=== PATIENT | male | born 1945 | race Caucasian/White ===

== ENCOUNTER 2021-04-07 14:59 | Emergency (ER) | payer MEDICARE, BC, SELFPAY ==
[2021-04-07 15:00] VITALS: BP 183/81; PULSE 62; RESP 16; TEMP 36.8; O2SAT 100; BMI 22.8
--- NOTE | 2021-04-07 15:02 | RAD_ITS ---
STUDY: X-RAY - LEFT SHOULDER REASON FOR EXAM: Male, 76 years old. Trauma TECHNIQUE: 5 view(s) of the shoulder. COMPARISON: None. FINDINGS: Normal glenohumeral articulation. Normal acromioclavicular joint. Normal acromion. Left clavicular comminuted fracture. Comminuted fracture of the left scapula along the inferior edge. Normal humeral head and visualized proximal humerus. The soft tissue structures are unremarkable. Multiple fractures from the first through seventh ribs. Pneumothorax at the left pulmonary apex. RAD/Shoulder min 2 Views IMPRESSION: Left clavicular and scapular fractures. Multiple left rib fractures. Left apical pneumothorax. Electronically Signed: Garcia Minaya DO at 17:13 EDT Tel [phone], Service support ,
--- NOTE | 2021-04-07 15:02 | RAD_ITS ---
STUDY: X-RAY - PELVIS AND LEFT HIP REASON FOR EXAM: Male, 76 years old. Trauma TECHNIQUE: 3 views of the pelvis and hip. COMPARISON: None. FINDINGS: There is a non-specific bowel gas pattern. Normal visualized soft tissue structures. Normal bilateral iliac wings, sacroiliac joints and visualized sacrum. Fractures are noted of the left superior and inferior pubic rami. Normal pubic symphysis. Normal bilateral ischial tuberosities. Previous ORIF of the left femur. Normal acetabulum. Normal hip joint. RAD/HIP, UNI W/ Pelvis 2-3 Views IMPRESSION: Left pubic rami fractures are suspected. Electronically Signed: Garcia Minaya DO at 17:11 EDT Tel [phone], Service support ,
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
[2021-04-07 15:06] VITALS: O2SAT 100
[2021-04-07] MEDS: Diphth,Pertuss(Acell),Tet Vac 0.5 ML Vial IM (15:17)
[2021-04-07] MEDS: Ondansetron 4 MG/2 ML Vial IV (15:17)
[2021-04-07] MEDS: Morphine 4 MG/ML Syringe IV ×2 (15:17→16:05)
--- NOTE | 2021-04-07 15:35 | CT_ITS ---
STUDY: CT BRAIN WITHOUT CONTRAST REASON FOR EXAM: Male, 76 years old. Trauma RADIATION DOSAGE (If Supplied By Facility): CTDIvol = ( 38.43 ) mGy, DLP = ( 784.74 ) mGycm TECHNIQUE: Transaxial CT imaging of the brain was performed without administration of intravenous contrast material. Individualized dose optimization techniques were used for this CT. COMPARISON: No relevant priors. FINDINGS: Normal soft tissue structures. Normal calvarium. There is mild cerebral atrophy with widening of the extra-axial spaces and ventricular dilatation. There are areas of decreased attenuation within the white matter tracts of the supratentorial brain, consistent with microvascular disease changes. Normal basal ganglia and thalami. Normal brainstem. Normal cerebellum. There is no intracranial hemorrhage. There are no findings of an acute ischemic infarction. Nasal septal deviation towards the left side of the midline. Mild degree of mucosal thickening of the ethmoid sinus. CT/Brain/Head without Contrast IMPRESSION: Chronic involutional changes of the brain. Electronically Signed: Franky Samayoa MD at 15:45 EDT , Service support ,
[2021-04-07 15:37] LABS: Absolute Lymphocyte Count 0.77 X10^3/uL (0.83-4.51); Absolute Neutrophil Count 22.5 X10^3/uL (2.0-7.7); Basophil# 0.04 X10^3/uL; Basophil% 0.2 % (0-1); Eosinophil# 0.02 X10^3/uL; Eosinophils% 0.1 % (0-5); Hematocrit 38.7 % (40-54); Hemoglobin 12.7 g/dL (13.0-16.5); Lymphocyte # 0.77 X10^3/ul (0.83-4.51); Lymphocyte % 3.1 % (19-41); Mean Corp Hgb Conc 32.8 g/dL (32-36); Mean Corpuscular Hgb 28.9 pg (27.0-32.0); Mean Corpuscular Volume 88.2 fL (80-94); Mean Platelet Vol. 9.6 fl (6.2-12.0); Monocyte# 1.46 X10^3/uL; Monocyte% 5.8 % (0-10); NRBC Flagged by Analyzer 0 % (0-5); Neutrophil # 22.53 X10^3/uL (2.7-7.7); Neutrophil % 89.4 % (47-70); POSITIVE DIFFERENTIAL YES; Platelet Count 228 K/mm3 (150-450); RBC Distribution Width CV 13.1 % (11.6-14.6); RBC Distribution Width SD 42.9 fl (35.1-43.9); Red Blood Count 4.39 M/mm3 (4.6-6.2); White Blood Count 25.2 K/mm3 (4.4-11.0)
[2021-04-07 15:39] LABS: Differential Indicated SCAN CRITERIA MET
--- NOTE | 2021-04-07 15:45 | RAD_ITS ---
STUDY: X-RAY CHEST REASON FOR EXAM: Male, 76 years old. Trauma TECHNIQUE: Frontal view COMPARISON: None. FINDINGS: The lungs are hyperaerated with patchy left pulmonary opacities. Left apical pneumothorax. Normal size heart. Normal mediastinum and georgina. Normal visualized pulmonary arteries. Calcified aortic arch and descending thoracic aorta. Normal visualized thoracic spine. Multiple left rib fractures. Left clavicular fracture. There is no demonstrated abnormality of the visualized soft tissue structures of the upper abdomen. RAD/Chest 1 View (Portable) IMPRESSION: The lungs are hyperaerated with patchy left pulmonary opacities. Left apical pneumothorax. Left rib fractures. Fractures of the left clavicle and scapula. Electronically Signed: Garcia Minaya DO at 17:09 EDT Tel [phone], Service support ,
[2021-04-07 15:56] LABS: Anion Gap 6 (5-15); BUN 20 mg/dL (7-18); BUN/Creat Ratio 22.7 RATIO (10-20); Chloride 103 mmol/L (98-107); Creatinine, Serum 0.88 mg/dL (0.70-1.30); EST Glomerular Filtration Rate 89 mL/min (>60); Est Glom Filt Rate - Afr Amer 107 mL/min (>60); Estimated Creatinine Clearance 68.89 ml/min; Glucose 187 mg/dL (74-106); Sodium Level 137 mmol/L (136-145)
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
[2021-04-07 16:01] LABS: Differential Comment SCANNED
--- NOTE | 2021-04-07 16:07 | CT_ITS ---
We are attempting to reach an attending provider to discuss findings. An addendum with communication details will be sent when the communication is complete. STUDY: CT CHEST, ABDOMEN T PELVIS WITH CONTRAST REASON FOR EXAM: Male, 76 years old. Trauma RADIATION DOSAGE (If Supplied By Facility): CTDIvol = ( 14.19 ) mGy, DLP = ( 1161.87 ) mGycm TECHNIQUE: Transaxial imaging was performed following intravenous administration of IV 100mL [id number]-300. Individualized dose optimization techniques were used for this CT. COMPARISON: No relevant priors. FINDINGS: CHEST There is a mild left hemopneumothorax, approximately 10-15%. Patchy left pulmonary parenchymal densities possibly related to contusions. Normal heart and pericardium. Possible proximal segmental narrowing of the left subclavian vein. Normal mediastinum. Normal hilar regions. Normal unenhanced pulmonary arteries. Normal aorta arch and descending thoracic aorta. Fractures are noted of the left clavicle and scapula. Fracture of the left transverse process of C7. Left first through seventh rib fractures. Degenerative vertebral changes. ABDOMEN Normal liver. Normal gallbladder and extrahepatic biliary system. Normal spleen. Normal pancreas. Normal bilateral adrenal glands. Up to 4 mm stones in the right kidney. 5 mm stone in the left kidney. Normal visualized stomach. Normal small intestine. Fecal retention in the colon. The appendix is visualized and appears normal. Calcified abdominal aorta. Normal inferior vena cava. Normal retroperitoneum. Normal abdominal wall. Previous ORIF of the left femur. Fracture of the left transverse process of L5. PELVIS Normal urinary bladder. There is no pelvic fluid. There is no pelvic lymphadenopathy or mass lesion. Normal visualized pelvic arteries. Left pubic rami fractures. Subcutaneous contusion lateral to the left hip. CT/CT Chest, Abd, Pel w/Contrast IMPRESSION: Small left hemopneumothorax. Probable left pulmonary contusions. Multiple left rib fractures. Fracture of the left scapula and clavicle. Fractures of the left transverse process of L5 and C7. Left pubic rami fractures. Bilateral nonobstructive renal calculi. Electronically Signed: Garcia Minaya DO at 17:07 EDT Tel [phone], Service support ,
[2021-04-07 17:00] VITALS: BP 181/74; PULSE 79; RESP 16; O2SAT 100
[2021-04-07 17:43] VITALS: BP 179/74; PULSE 81; RESP 19; O2SAT 100
== END 2021-04-07 17:45 | disposition short-term general hospital (02) ==
LOC: ED 15:25
PROVIDERS: Emergency Provider Emergency Medicine; PCP Family Medicine
DX: S12.690A Other displaced fracture of seventh cervical vertebra, initial encounter for closed fracture (principal); S42.002A Fracture of unspecified part of left clavicle, initial encounter for closed fracture; S42.192A Fracture of other part of scapula, left shoulder, initial encounter for closed fracture; S22.42XA Multiple fractures of ribs, left side, initial encounter for closed fracture; S32.592A Other specified fracture of left pubis, initial encounter for closed fracture; S27.0XXA Traumatic pneumothorax, initial encounter; V19.88XA Pedal cyclist (driver) (passenger) injured in other specified transport accidents, initial encounter; Y93.55 Activity, bike riding; Y92.9 Unspecified place or not applicable; Y99.8 Other external cause status; M81.0 Age-related osteoporosis without current pathological fracture; N20.0 Calculus of kidney; Z79.82 Long term (current) use of aspirin; Z96.642 Presence of left artificial hip joint
CPT/HCPCS: 70450; 71045; 71260; 72125; 73030; 73502; 74177; 80048; 85025; 90715; 96361; 96374; 96375; 96376; 99285; J7040; Q9967; A4216; J2405

== ENCOUNTER 2024-08-12 08:51 | Emergency (ER) | payer MEDICARE, BC, SELFPAY ==
[2024-08-12 08:53] VITALS: BP 185/73; PULSE 71; RESP 18; TEMP 37.1; O2SAT 100; BMI 23.3
--- NOTE | 2024-08-12 09:07 | CT_ITS ---
STUDY: CT FACIAL BONES WITHOUT CONTRAST REASON FOR EXAM: Male, 79 years old. RT EYE SWELLING RADIATION DOSAGE (If Supplied By Facility): CTDIvol = ( 29.38 ) mGy, DLP = ( 547.46 ) mGycm TECHNIQUE: The patient was scanned in a multi detector CT scanner. Sagittal and coronal images were reconstructed. Individualized dose optimization techniques were used for this CT. COMPARISON: None. FINDINGS: There is extensive soft tissue swelling anterior to the right globe without evidence of involvement of the globe. There is no evidence of associated fracture. Findings likely inflammatory or post traumatic. There is no evidence of induration of the retrobulbar fat or involvement of the extraocular muscles. There is evidence of previous cataract surgery. Normal nasal bones and anterior nasal spine. Normal facial bones. There is no demonstrated fracture. Normal visualized paranasal sinuses. CT/Sinus/Facial Bone IMPRESSION: Diffuse soft tissue swelling anterior and lateral to the right orbit likely posttraumatic or inflammatory without involvement of the right globe or retrobulbar contents. No demonstrated fracture Paranasal sinuses are unremarkable Electronically Signed: Alverto Weinstein MD at 9:31 EDT ,
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
[2024-08-12 10:39] VITALS: BP 178/89; PULSE 78; RESP 19; TEMP 36.6; O2SAT 98
== END 2024-08-12 10:46 | disposition home or self-care (01) ==
PROVIDERS: Emergency Provider Emergency Medicine; PCP Family Medicine; Visit Provider Emergency Medicine
DX: S00.11XA Contusion of right eyelid and periocular area, initial encounter (principal); W22.09XA Striking against other stationary object, initial encounter; Y93.01 Activity, walking, marching and hiking; B35.4 Tinea corporis
CPT/HCPCS: 70486; 99283

== ENCOUNTER 2025-05-11 07:00 | Outpatient (RCR) | payer MEDICARE, BC, SELFPAY ==
--- NOTE | 2025-03-23 10:21 | HP.PTEVAL_ITS ---
Patient's Visit Information Visit Information Visit Information: JM ETIENNE is a 80 year old M referred to Physical Therapy by Dr. Jasper Rojas MD with a diagnosis of degenerative lumbar spinal stenosis. Date of Evaluation: 03/23/25 Physical Therapist: Wei Keen, DPT, OCS, CSCS Visit Plan Frequency: 2x /Week Duration: 4-6 Weeks Plan: 2x/week for 3-6 weeks IE HEP: trunk rotation, PPT, SKC, cat camel 20x 2x/day, pointer dogs 30 2x/day, postureal review and slouch overcorrect if sitting long time. Treat with1. rollout and stretch to B quads and psoas to help upright posture. 2. pelvic ROM, mobs and lumbar ROM encouraging progressive extension and HEP 3. core and hip stabs and strength to HEP. Emphasize NS which is hard for patient to get to. Subjective Subjective: Back pain and quad pain with walking. Feels like walking in sand. [place] that way for 6+ months. Back pain is more in buttocks. happns with being on feet especially first arising and first few steps. Legs feeling in quads kicks in immediately. Always active for 30+ yrs running many marathons. 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 Still bikes and is not a problem. Getting off for first few steps can be painful problem. Basic ADLS all I. Sleep is OK. Stiff upon waking. used to walk alot but has avoided due to this. No other regualr exercises but some core planks, pointer dogs sometimes, crunches. Pain LBP: Pain Intensity (Out of 10): 0 Pain Intensity Range: 0 and 2 Comment: comfy in sitting Objective Objective: Tightness in gait avoiding hip extension and pelvic anterior rotation, short steps but I and smooths out after first couplke steps. Good balance. Transfers are I in chair and bed. Sitting posture is sacral and flexed lumbar and thoracic spine with FW head, can correct but lab ored. Max tightness in quads and psoas B, HS at -35 90/90 test. Lumbar AROM ext max limited especially in pelvic rotation, flexion is min limited, SB min limited. reflexes 2/3 patella adn achilles Sensation LE WNl B to gross light touch. strength knees and ankles 5/5, hip abd and ext 3/5, rotation 3/5, core 3+ /5 abs and ext. Hard for patient to lie flat due to back tightness in supine unless knees are bent - slump, - SLR B. Balance/Special Test Scores Oswestry Low Back Score: 11 Goals Goal 1:: Lumbar ROM ext mod llimtied and fair pelvic motion to improve back pain Goal Time Frame: 4-6 Weeks Goal 2:: I appropriate HEP to limit future problems and maximize walking. Goal Time Frame: 4-6 Weeks Goal 3:: Pain in LB and weirdness in legs 75% better and 1/10 at worst Goal Time Frame: 4-6 Weeks Goal 4:: Find upright sitting and standing posture without cueing. Goal Time Frame: 4-6 Weeks Goal 5:: walk for fitness without increasing pain Goal Time Frame: 4-6 Weeks Goal 6:: oswestry score 50 Goal Time Frame: 4-6 Weeks Rehabilitation Potential Physical Therapy Diagnosis: Limited rom pelvis and lumb ar and tightness and weakness effecting comfort and funciton. Rehabilitation Potential: Fair Anticipated Interventions Patient/Client Instruction: Educate patient on: Condition and Plan of Care For the Purpose of:: To decrease pain, To increase ROM, To improve nutrient delivery to tissue, To increase tolerance to activity/condition/position, To improve ability of physical actions for home/community/work/leisure and To improve gait and locomotor functions Therapeutic Exercise to Include: Strength training, Postural training, Flexibilty training, Passive ROM and Active ROM For the Purpose of:: To decrease pain, To increase ROM, To improve nutrient delivery to tissue, To increase tolerance to activity/condition/position, To improve ability of physical actions for home/community/work/leisure, To improve gait and locomotor functions and To increase flexibility/ROM Manual Therapy Techniques to Include: Mobilization, Passive ROM and Soft tissue mobilization For the Purpose of:: To decrease pain, To increase ROM, To improve nutrient delivery to tissue, To increase tolerance to activity/condition/position and To increase flexibility/ROM Thermo therapy (hot pack): Yes For the Purpose of:: To decrease pain, To increase ROM and To improve muscle performance and motor function Text: Thank you for the opportunity to evaluate your patient. For Medicare and Medicare HMO plans, please review the plan of care and approve it. It will need to be FAXED BACK to us at [phone] for Medicare purposes. For Medicare only, by signing this I certify the plan of care. Please let me know if there are questions or concerns regarding this plan of care. Physician Signature: Date:
--- NOTE | 2025-05-11 07:49 | HP.PTDCSUM_ITS ---
Discharge Summary D/C summary: It has been my pleasure to treat JM ETIENNE referred by Dr. Jasper Rojas MD, with the diagnosis of degenerative lumbar spinal stenosis for a total of 13 visit(s). Discharge Date: 05/11/25 Please see the following information for a summary of their discharge status. Subjective Subjective: Pretty good. Not much better than 2 weeks ago. No f/u scheduled but can do that. HEP going well. No real pain, just stiffness worse with exte nsion. Worse after walking and riding bike. Stiffness is main problem. Pain LBP: Pain Intensity (Out of 10): 0 Overall Improvement % Improvement: 25 Objective Objective/Function: Walks avoiding pushoff and still weak in B plantarflexors. Neutral lumbar extension is still hard to geet to especially after sitting. Other ROM and pelvic ROM mod limited.. Walking safe adn I but short steps and little weight shift pushoff. appears to be structural stiffness in LB possibly causing weakness in leegs and appropriate to check back with doctor regarding other options. Goals Goal 1:: Lumbar ROM ext mod llimtied and fair pelvic motion to improve back pain Goal Progress: Not Progressing Goal 2:: I appropriate HEP to limit future problems and maximize walking. Goal Progress: Progressing Goal 3:: Pain in LB and weirdness in legs 75% better and 1/10 at worst Goal Progress: Not Progressing Goal 4:: Find upright sitting and standing posture without cueing. Goal Progress: Goal Met Goal 5:: walk for fitness without increasing pain Goal Progress: 1 mile Goal 6:: oswestry score 50 Goal Progress: Goal Met Plan Plan: d/c, pt to contact doctor regarding other options. D/C Information Discharge Comments: Pt not improving much, still stiffness is main problem and neeeding support to walk far , specially stiff after sitting and riding bike in legs and b ack. Still weak in plantarflexors possibly nurological. Will scheedule with doctor for next step. d/c sentence: If there are questions or concerns regarding this patient's physical therapy, please feel free to call me at [phone]. Thank you for the referral of this patient. Sincerely, Wei Keen, DPT, OCS, CSCS Balance/Gait/Functional tests Balance/Special Test Scores Oswestry Low Back Score: 5 Improvement % Improvement: 25
== END 2025-05-11 19:00 | disposition home or self-care (01) ==
LOC: PT 07:00
PROVIDERS: PCP Family Medicine; Referring Provider Family Medicine; Visit Provider Family Medicine
DX: M48.061 Spinal stenosis, lumbar region without neurogenic claudication (principal)
CPT/HCPCS: 97110; 97161; 97164; 97530

== ENCOUNTER → 2025-06-22 | Outpatient (CLI) | payer MEDICARE, BC, SELFPAY ==
--- NOTE | 2025-06-22 16:12 | MRI_ITS ---
PROCEDURE: SPINE LUMBAR (ROUTINE) 06/22/2025 REASON FOR EXAM: SPINAL STENOSIS OF LUMBOSACRAL REGION TECHNIQUE: SPINE LUMBAR (ROUTINE) COMPARISON: None. FINDINGS: Vertebrae: Subacute/chronic fracture at the upper endplate of L1 with 50% height loss. No retropulsion. Alignment: Normal. Conus Medullaris: Unremarkable. T12-L1: Disc bulge. Facet joint arthropathy. Ligamentum flavum hypertrophy. Mild bilateral foramina stenosis. Mild canal stenosis. L1-2: Disc bulge. Facet joint arthropathy with fluid effusion. Mild inferior bilateral foramina stenosis. Mild canal stenosis. L2-3: Disc bulge. Disc desiccation. Facet joint arthropathy. Facet fluid effusion. Ligamentum flavum hypertrophy. Severe canal stenosis. Severe bilateral foramina stenosis. L3-4: Disc bulge. Facet joint arthropathy. Ligamentum flavum hypertrophy. Facet joint effusion. Severe canal stenosis with compression upon the cauda equina. Severe canal stenosis. L4-5: Disc bulge. Facet joint arthropathy. Ligamentum flavum hypertrophy. Moderate bilateral foramina stenosis. Moderate canal stenosis. L5-S1: Disc bulge. Facet joint arthropathy. Severe bilateral foramina stenosis and mass effect upon the exiting nerves. No canal stenosis. Sacrum: Unremarkable. MRI/Spine Lumbar (Routine) IMPRESSION: Multilevel degenerate changes predominantly at L2-L3 and L3-L4 where there is s evere bilateral foramina stenosis and severe canal stenosis with compression upon the cauda equina nerves. Reading Location: [facility]
== END | disposition home or self-care (01) ==
LOC: MRI 16:04
PROVIDERS: PCP Family Medicine; Referring Provider Family Medicine; Visit Provider Family Medicine
DX: M48.07 Spinal stenosis, lumbosacral region (principal)
CPT/HCPCS: 72148

== ENCOUNTER 2025-09-19 13:31 | Observation (INO) | payer MEDICARE, BC, SELFPAY ==
--- NOTE | 2025-09-05 16:25 | PAT.ANESEVAL ---
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 When Was Last Pacemaker Check QUESTION #4 FULL TEXT: You/Your Family Experience fever (hyperthermia) with Anesthesia Last Oral Intake Last Oral intake: Last Oral Intake NPO since Meds taken in AM with sips of water? Meds patient instructed to take am of surgery PONV PONV - corner bead operator: PONV - corner bead operator Female No 09/05/25 14:04 HX of Motion Sickness No 09/05/25 14:04 HX of N/V After Surgery No 09/05/25 14:04 Non-Smoker Yes 09/05/25 14:04 Duration of Surgery greater Yes 09/05/25 14:04 than 60 minutes Number of Risk Factors 2 09/05/25 14:04 PONV Score Moderate Risk 09/05/25 14:04 Height & Weight Height & Weight: Anesthesia: Height & Weight Height 5 ft 8 in 07/10/25 10:29 Respiratory Assessment Respiratory Assessment - corner bead operator: Respiratory Tract Infection Hx - corner bead operator Hx Respiratory Tract Infection No 09/05/25 14:04 STOP Sleep Apnea STOP Sleep Apnea - corner bead operator: STOP Sleep Apnea - corner bead operator Hx Hypertension No 09/05/25 14:04 Hx Sleep Apnea No 09/05/25 14:04 CPAP BIPAP Do you snore loudly (louder No 09/05/25 14:04 than talking or can be heard Do you often feel tired/ No 09/05/25 14:04 fatigued/ sleepy during daytime? Has anyone observed you stop No 09/05/25 14:04 breathing during sleep? STOP Results Negative 09/05/25 14:04 QUESTION #5 FULL TEXT : Do you snore loudly (louder than talking or can be heard through closed doors)? 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 Specify any problems Hx of Preganancy in last 3 N/A 09/05/25 14:04 Months Nurse Filling Out Transfusion [email or web address] 09/05/25 14:04 & Questions: Date: 09/05/25 09/05/25 14:04 Time: 14:08 09/05/25 14:04 Patient unable to answer at this time (ie. confused, unrespo /Reproduction History /Reproductive History - corner bead operator: /Reproductive Hx- corner bead operator Hx Now Gestational Age (in weeks): EDC: Hx Hx Para Hx Section SAB PFSH Medical History (Updated 09/05/25 @ 14:13 by Emanuel Jiang) Wears glasses Alcohol use Non-smoker Clavicle fracture Osteopenia Osteoporosis Home Medications Medication Instructions Recorded Last Taken Type aspirin 81 mg chewable tablet 81 mg PO DAILY 04/07/21 Unknown History brimonidine 0.2 % eye drops 1 drp ophthalmic (eye) BID 07/10/25 Unknown History risedronate 150 mg tablet 150 mg PO QMONTH 07/10/25 Unknown History Allergy/AdvReac Type Severity Reaction Status Date / Time No Known Allergies Allergy Verified 09/05/25 14:03 Family History Mother No problems noted. Father No problems noted. Surgical History History of hip surgery History of ankle surgery Social History Smoking Status: Never smoker alcohol intake: current alcohol intake frequency: holidays/special occasions only Audit: Pertinent Findings Pertinent Findings EKG Perinent findings: Sinus rhythm with first-degree AV block Recommendation Anesthesia Recommendation Anesthesia recommendation: OPTIMIZED for anesthesia
[2025-09-07 14:22] LABS: Magnesium 2.0 mg/dL (1.5-2.2)
[2025-09-19] VITALS (12 sets, daily range): BP systolic 123–183; BP diastolic 62–83; PULSE 65–80; RESP 16–18; TEMP 36.2–37; O2SAT 94–100; BMI 23.1; BMI 22.8
--- NOTE | 2025-09-19 09:29 | PRE.ANES_ITS ---
ASA Classification* ASA Classification ASA Classification: 2 Assessment & Plan Anesthesia* Anesthesia Assessment Anesthesia Assessment: Discussed sedation and/or anesthesia options, risks, benefits, and alternatives with patient/parents/legal guardian/POA. Questions invited. The patient/parents/legal guardian/POA seems to understand and agrees to proceed with anesthesia plan. Reviewed the physical assessment, medical history, allergy history and patient home medications list prior to surgery/procedure/anesthetic and documented any changes. Performed airway and anesthesia risk assessments. Anesthesia Type Anesthesia Type: General Anesthesia Focused Assessment* Airway Assessment Mouth opens: >3 cm Mallampati Score: II Labs Anesthesia Preop lab: CBC WBC, (4.4-11.0) 25.2 K/mm3 H 04/07/21, 15:14 RBC, (4.6-6.2) 4.39 M/mm3 L 04/07/21, 15:14 Hgb, (13.0-16.5) 12.7 g/dL L 04/07/21, 15:14 Hct, (40-54) 38.7 % L 04/07/21, 15:14 Plt Count, (150-450) 228 K/mm3 04/07/21, 15:14 CHEMISTRY Potassium, (3.5-5.1) 4.0 mmol/L 04/07/21, 15:14 Sodium, (136-145) 137 mmol/L 04/07/21, 15:14 Magnesium, (1.5-2.2) 2.0 mg/dL 09/07/25, 13:15 BUN, (7-18) 20 mg/dL H 04/07/21, 15:14 Creatinine, (0.70-1.30) 0.88 mg/dL 04/07/21, 15:14 Glucose, (74-106) 187 mg/dL H 04/07/21, 15:14 COAG Pre-Assessment Diagnosis/Proposed Procedure Planned Operative Procedure(s): LUMBAR LAMINECTOMY L3-4 Anesthesia History 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 When Was Last Pacemaker Check QUESTION #4 FULL TEXT: You/Your Family Experience fever (hyperthermia) with Anesthesia Last Oral Intake Last Oral intake: Last Oral Intake NPO since Meds taken in AM with sips of water? Meds patient instructed to take am of surgery PONV PONV - rubber goods inspector: PONV - rubber goods inspector Female No 09/05/25 14:04 HX of Motion Sickness No 09/05/25 14:04 HX of N/V After Surgery No 09/05/25 14:04 Non-Smoker Yes 09/05/25 14:04 Duration of Surgery greater Yes 09/05/25 14:04 than 60 minutes Number of Risk Factors 2 09/05/25 14:04 PONV Score Moderate Risk 09/05/25 14:04 Height & Weight Height & Weight: Anesthesia: Height & Weight Height 5 ft 8 in 09/13/25 10:20 Respiratory Assessment Respiratory Assessment - rubber goods inspector: Respiratory Tract Infection Hx - rubber goods inspector Hx Respiratory Tract Infection No 09/05/25 14:04 STOP Sleep Apnea STOP Sleep Apnea - rubber goods inspector: STOP Sleep Apnea - rubber goods inspector Hx Hypertension No 09/05/25 14:04 Hx Sleep Apnea No 09/05/25 14:04 CPAP BIPAP Do you snore loudly (louder No 09/05/25 14:04 than talking or can be heard Do you often feel tired/ No 09/05/25 14:04 fatigued/ sleepy during daytime? Has anyone observed you stop No 09/05/25 14:04 breathing during sleep? STOP Results Negative 09/05/25 14:04 QUESTION #5 FULL TEXT : Do you snore loudly (louder than talking or can be heard through closed doors)? 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 Specify any problems Hx of Preganancy in last 3 N/A 09/05/25 14:04 Months Nurse Filling Out Transfusion [email or web address] 09/05/25 14:04 & Questions: Date: 09/05/25 09/05/25 14:04 Time: 14:08 09/05/25 14:04 Patient unable to answer at this time (ie. confused, unrespo /Reproduction History /Reproductive History - rubber goods inspector: /Reproductive Hx- rubber goods inspector Hx Now Gestational Age (in weeks): EDC: Hx Hx Para Hx Section SAB Active Medications Active Medications: Current Medications Generic Name Dose Route Start Last Admin Trade Name Freq PRN Reason Stop Dose Admin Acetaminophen 1,000 mg 09/19/25 12:15 Acetaminophen 500 Mg Tablet PO 09/19/25 12:16 PREOP ONE Cefazolin Sodium 2 gm/ Sodium 110 mls @ 150 mls/hr 09/19/25 12:15 Chloride IV 09/19/25 12:58 INTRAOP ONE Tranexamic Acid 1,000 mg/ 110 mls @ 440 mls/hr 09/19/25 12:15 Sodium Chloride IV 09/19/25 12:29 INTRAOP ONE Tranexamic Acid 1,000 mg/ 110 mls @ 440 mls/hr 09/19/25 12:15 Sodium Chloride IV 09/19/25 12:29 INTRAOP ONE Magnesium Sulfate 1 gm/ 102 mls @ 408 mls/hr 09/19/25 12:15 Dextrose IV 09/19/25 12:29 PREOP ONE Insulin Human Lispro 1 - 6 unit 09/19/25 12:15 Insulin Lispro 100 Unit/Ml Insuln.Pen SC Q4H PRN PRN BG>/= 180, SEE PROTOCOL Protocol PFSH Medical History Wears glasses Alcohol use Non-smoker Clavicle fracture Osteopenia Osteoporosis Home Medications Medication Instructions Recorded Last Taken Type aspirin 81 mg chewable tablet 81 mg PO DAILY 04/07/21 Unknown History brimonidine 0.2 % eye drops 1 drp ophthalmic (eye) BID 07/10/25 Unknown History risedronate 150 mg tablet 150 mg PO QMONTH 07/10/25 Un known History Allergy/AdvReac Type Severity Reaction Status Date / Time No Known Allergies Allergy Verified 09/13/25 10:23 Family History Mother No problems noted. Father No problems noted. Surgical History History of hip surgery History of ankle surgery Social History Smoking Status: Never smoker alcohol intake: current alcohol intake frequency: holidays/special occasions only Review of Systems (Anesthesia) ROS Narrative System reviewed and no additional complaints, except as documented.
[2025-09-19] MEDS: Lactated Ringers 1,000 ML 15 ML IV (10:00)
[2025-09-19] MEDS: Magnesium 1 GM over 15 mins IV (10:10)
--- NOTE | 2025-09-19 10:45 | RAD_ITS ---
PROCEDURE: LUMBAR SPINE 2 OR 3 VIEWS 09/19/2025 REASON FOR EXAM: LUMBAR LAMINECTOMY L3-4 TECHNIQUE: Procedure Code: RADSPLL Modality: DX Procedure: LUMBAR SPINE 2 OR 3 VIEWS 1 intraoperative view, 3.8 seconds of fluoroscopy, radiation dose of 1.38 mGy COMPARISON: 07/10/2025 FINDINGS: Single lateral view of the lumbar spine in the operating room shows an instrument posterior to the superior endplate of L4. RAD/Lumbar Spine 2 or 3 Views IMPRESSION: No intraoperative complications noted during L3-4 laminectomy. Surgical instru ment noted posterior to the superior endplate of L4 Reading Location: [id number]
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
[2025-09-19] MEDS: Cefazolin 1 GM/5 ML Vial 2 GM IV (11:38)
[2025-09-19] MEDS: Lidocaine 1% (5 ml sdv) 5 ML Vial 6 ML IV (11:43)
[2025-09-19] MEDS: TRANEXAMIC ACID 1,000 MG/10 ML ML 2000 MG IV (13:01)
[2025-09-19] MEDS: fentaNYL 100 MCG/2 ML Ampul 200 MCG IV (13:13)
--- NOTE | 2025-09-19 13:50 | PCM.OPRPT ---
Procedures Musculoskeletal [id number]-29xxx: Other Procedure See Report Operative Report (Standard) Operative Information Date of Procedure: 09/19/25 Pre-Operative Diagnosis: L3-4 disc degeneration with stenosis with neurogenic claudication Post-Operative Diagnosis: Same Surgery/Procedure Performed: L3-4 laminectomy decompression foreign language stenographer: Yes Substitute School Nurse: Sheela Serrano Tasks completed by director of first impressions: Closing, Removing tissue, Hemostasis: Electrocautery and Retracting Type of Anesthesia: General RN Documented Start/Stop Times: Operation Date: 09/19/25 11:45 Case Time Into Pre-Op 09/19/25 09:37 Out of Pre-Op 09/19/25 11:34 Anesthesia Start 09/19/25 11:38 Into Room 09/19/25 11:38 Procedure Start 09/19/25 12:07 Procedure End 09/19/25 13:25 Anesthesia End 09/19/25 13:33 Out of Room 09/19/25 13:33 Into Recovery 09/19/25 13:35 Procedure Start Time: 12:07 Procedure Stop Time: 13:25 Select all DRAINS/GRAFTS/IMPLANTS that apply: None Estimated Blood Loss: 20 cc Specimen collected: No Description of surgery: Preoperative diagnosis: L3-4 central lateral recess stenosis bilateral, neurogenic claudication Postoperative diagnosis: Same Name of procedure: L3-4 open laminectomy CPT 64805 Attending Surgeon: Dr. Thierry Kramer Estimated blood loss: 20 mL Anesthesia: General Indications: Patient is a 80-year-old gentleman who presented with low back pain and bilateral lower extremity radiation, with difficulty walking distances and neurogenic claudication. MRI revealed L3-4 severe central and bilateral lateral recess stenosis. All options of treatment were discussed which included continued nonoperative treatment measures like rest physical therapy, injections. After prolonged nonsurgical treatment, patient requested surgical intervention for laminectomy. All risks and benefits associated with the procedure were explained to the patient. The risks include but are not limited to infection, bleeding, injury to nerves and vessels, persistent paresthesia, incidental dural tear, recurrent disc herniation, spinal instability and need for fusion or other procedures in future, persistent pain, persistent weakness and numbness, etc. Procedure: The patient was identified in the preoperative holding suite using Unique patient identifiers. Skin was marked, consent was reviewed, and all questions were answered. The patient was then brought back to the operative room. A surgical timeout was performed to make sure correct procedure was being done on the correct patient and all operative room staff were on the same page. General endotracheal anesthesia was then given to the patient. The patient was then turned prone onto a Danny table over a Meet frame. The back was prepped and draped in usual fashion. Preoperative antibiotic was given. A final timeout was then again done just before starting the procedure. An 18-gauge spinal needle was inserted and level was identified. An incision was then carried out in the midline. Bovie was utilized to dissect through the subcutaneous tissue up to the fascia. The fascia was bovied at the spinous process. Subperiosteal dissection was carried out along the both side of the spinous process and the lamina. This dissection was stopped at the level of the medial capsule of the facet joint. Lateral edge of the pars was also identified. A Shawnee was then placed under the inferior edge of the lamina and a C-arm lateral view was repeated. The level was confirmed to be the L3-4 interspace. A Chisholm retractor of appropriate depth was then placed to provide retraction throughout the remainder of the surgery. A bone cutter was used to remove the spinous process. SIM Partnersonix bone scalpel was then utilized to first create a score along the area of the laminectomy. Care was taken to preserve at least 1 cm of bone from the lateral border of the pars. The bone scalpel was then advanced to perform the cuts along this score. The lamina was then removed with the help of curettes and rongeurs. The flavum was utilized to protect the dura and superior articular process was carefully from the flavum. Partial medial facetectomy was performed to provide adequate lateral recess decompression. All of the flavum was eventually removed. Once decompression was adequately assessed with Shawnee in both L3 and L4 foramina bilaterally, irrigation was done with normal saline. Valsalva maneuver up to 40 mmHg pressure sustained was then done by anesthesia for a few seconds to confirm no dural leak. Irrisept was kept in the wound for 1 minute and then rinsed with saline. Significant thinning of the dura was identified, and just for precaution, Tisseel was sprayed over the exposed dura for providing a sealant as well as for hemostasis. A small piece of Gelfoam was then placed over the bony window. The Chisholm retractor was then removed. And closure was done in layers, 0 Vicryl for the deep fascia, 2-0 Vicryl for subcutaneous tissue, and guillermina for the skin. The deep fascial layer was closed in a watertight fashion with interrupted 0 Vicryl augmented with #1 strata fix. 4 x 4 gauze was then placed over the wound covered with Tegaderm. The patient was then turned supine onto a hospital bed. The patient was extubated and taken to PACU in stable condition. The patient tolerated the procedure well and no complications occurred. Estimated blood loss for the entire surgery was 30 mL. No instrumentation was utilized in this case. No dural tear was identified in this case. I was present for the entirety of the case and performed the surgery myself. Catering Truck Operator Sheela Serrano PA-C. My physician assistant professor surgical technology was a vital part of this case. They were important in appropriate retraction during the case, and protection of soft tissues during the procedure. Their intimate knowledge of the case and my steps aided in safe and expedient completion of the procedure as well as appropriate position of the patient during the surgery. They were also vital in assisting with closure under my direct supervision. Surgical Findings: See operative note Complications Complications: No
--- NOTE | 2025-09-19 14:00 | PCM.POST.ANE ---
Anesthesia: Postop Eval I Current Vital Signs Temperature: 98.2 F Pulse Rate: 78 Blood Pressure: 183/83 Respiratory Rate: 16 Pulse Ox: 100 Oxygen Delivery Method: Simple Mask Oxygen Flow Rate (L/min): 6 Assessment Airway patent: Yes Spontaneous unlabored respirations: Yes Mental status: Awake and Calm nausea: No Vomiting: No Anesthesia Complication: No Fluid Hydration Crystalloid volume administer (ml): 1,000 Total IV fluid infused: 1,000 Progress Note Anesthesia document: Postop Eval 1 completed: Yes
--- NOTE | 2025-09-19 14:05 | POSTOPAN2_ITS ---
Anesthesia Postop Eval I Sum Postop Eval Completion status Anesthesia document: Postop Eval 1 completed: Yes Anesthesia Postop Eval I Summary Anesthesia Postop Eval I Summary: Anesthesia Postop Eval I: Assessment Summary Airway patent Yes 09/19/25 14:00 FIRE CODE [email or web address].[email or web address] Spontaneous unlabored Yes 09/19/25 14:00 FIRE CODE [email or web address].[email or web address] respirations Mental status Awake,Calm 09/19/25 14:00 FIRE CODE INSPECTOR.[email or web address] nausea No 09/19/25 14:00 FIRE CODE INSPECTOR.KENNEDY Vomiting No 09/19/25 14:00 FIRE CODE INSPECTOR.KENNEDY Anesthesia Postop Eval I: Fluid Summary Crystalloid volume administer 1,000 09/19/25 14:00 FIRE CODE INSPECTOR.SKOBY (ml) Colloids volume administered ( ml) Blood Product volume administered (ml) Total IV fluid infused 1,000 09/19/25 14:00 FIRE CODE INSPECTOR.KENENDY Anesthesia Postop Eval I: Summary Notes Anesthesia Complication No 09/19/25 14:00 FIRE CODE INSPECTOR.[email or web address] Anesthesia Complication Comment: Post-operative progress note Anesthesia: Postop Eval II Evaluation Mental status: Awake Pain Level: 2 nausea: No Vomiting: No
--- NOTE | 2025-09-19 14:05 | PCM.POSTANE2 ---
Anesthesia Postop Eval I Sum Postop Eval Completion status Anesthesia document: Postop Eval 1 completed: Yes Anesthesia Postop Eval I Summary Anesthesia Postop Eval I Summary: Anesthesia Postop Eval I: Assessment Summary Airway patent Yes 09/19/25 14:00 SAP INTEGRATION ARCHITECT.DANNAOBHailey Spontaneous unlabored Yes 09/19/25 14:00 SAP INTEGRATION ARCHITECT.KENNEDY respirations Mental status Awake,Calm 09/19/25 14:00 SAP INTEGRATION ARCHITECT.KENNEDY nausea No 09/19/25 14:00 SAP INTEGRATION ARCHITECT.KENNEDY Vomiting No 09/19/25 14:00 SAP INTEGRATION ARCHITECT.KENNEDY Anesthesia Postop Eval I: Fluid Summary Crystalloid volume administer 1,000 09/19/25 14:00 SAP INTEGRATION ARCHITECT.SKOBY (ml) Colloids volume administered ( ml) Blood Product volume administered (ml) Total IV fluid infused 1,000 09/19/25 14:00 SAP INTEGRATION ARCHITECT.KENNEDY Anesthesia Postop Eval I: Summary Notes Anesthesia Complication No 09/19/25 14:00 SAP INTEGRATION ARCHITECT.KENNEDY Anesthesia Complication Comment: Post-operative progress note Anesthesia: Postop Eval II Evaluation Mental status: Awake Pain Level: 2 nausea: No Vomiting: No
--- NOTE | 2025-09-19 14:55 | CON.PCM.HO_ITS ---
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 Christiano Apple - Management/pain management per primary #DVT ppx: Agent and timing at discretion of primary Sandy Menon MD Time spent in the patient's overall evaluation, decision-making process, review of diagnostic data, adjustment of management, discussion with other providers, nursing and ancillary staff involved in patient's care documentation, 12 Minutes HPI Consult Data Date of Consult: 09/19/25 HPI Narrative Reason for Consultation: Post operative medical management HPI Narrative: JM ETIENNE, is a 80-year-old male with a history of osteoporosis and lumbar stenosis with neurogenic claudication presented [facility] 09/19/2025 for lumbar laminectomy decompression. Hospitalist consulted for postoperative medical management. Patient evaluated bedside, no chest pain or shortness of breath, no nausea or vomiting, denies any other new or acute complaints. Denies any smoking or any routine alcohol use. [facility] Medical History (Updated 09/19/25 @ 14:[address] Sandy Menon MD) Alcohol use Clavicle fracture Non-smoker Osteopenia Osteoporosis Wears glasses Home Medications Medication Instructions Recorded Last Taken Type aspirin 81 mg chewable tablet 81 mg PO DAILY 04/07/21 09/12/25 History Held on 09/19/25. Instructions: Resume on 09/21/25. brimonidine 0.2 % eye drops 1 drp ophthalmic (eye) BID 07/10/25 09/19/25 06:30 History risedronate 150 mg tablet 150 mg PO QMONTH 07/10/25 History acetaminophen 500 mg capsule 500 mg PO Q6H #30 caps Unknown Rx hydrocodone-acetaminophen 5-325mg 1 tab PO Q6H PRN nancy n 5 days #20 09/19/25 Unknown Rx 5mg-325mg tabs meloxicam 15 mg tablet 15 mg PO DAILY #30 tabs 08/30 01/23 Unknown Rx methocarbamol 500 mg tablet 750 mg (1.5 x 500 mg) PO T ID PRN 09/19/25 Unknown Rx pain/spasms #30 tabs sennosides 8.6 mg-docusate sodium 2 tab PO BID PRN con stipation #14 09/19/25 Unknown Rx 50 mg tablet (Stimulant Laxative tabs Plus) Allergy/AdvReac Type Severity Reaction Status Date / Time No Known Allergies Allergy Verified 09/19/25 10:17 Family History Mother No problems noted. Father No problems noted. Surgical History (Updated 09/19/25 @ 14:26 by NAEEM Hernandez) History of ankle surgery History of hip surgery Social History Smoking Status: Never smoker alcohol intake: current alcohol intake frequency: holidays/special occasions only ROS ROS Narrative ROS reviewed and pertinent positives and negatives as above Physical Exam Narrative General: Alert, oriented, no apparent distress HEENT: Atraumatic, normocephalic Eyes: Anicterict Neck: Supple Respiratory: Clear to auscultation bilaterally, normal respiratory effort Cardiovascular: Regular rate and rhythm GI: Soft, nontender, nondistended Extremities: No edema Musculoskeletal: Moving all extremities Neuro: No overt focal neurological deficits Skin: No rashes appreciated Psych: Cooperative Charges/Coding Visit Charges Office Visits / Consults: 37112 OV L2 Est 10min
[2025-09-19] MEDS: Ensure Surgery 237 ML LIQUID PO (18:28)
[2025-09-19] MEDS: 0.9% Saline Lock 10 ML Syringe IV ×2 (18:28→22:56)
[2025-09-19] MEDS: Cefazolin 2 GM in 0.9% Normal Saline (100mL Bag) 100 ML IV (20:01)
[2025-09-19] MEDS: Senna/Docusate Sodium 1 Tablet 2 TABLET PO (22:42)
[2025-09-19] MEDS: BRIMONIDINE 0.2% 5ML BOTTLE 1 DRP OPHTHALMIC (22:43)
[2025-09-20] VITALS: BP 125/74; PULSE 78; RESP 16; TEMP 36.6; O2SAT 98
[2025-09-20] MEDS: Cefazolin 2 GM in 0.9% Normal Saline (100mL Bag) 100 ML IV (04:57)
[2025-09-20] MEDS: 0.9% Saline Lock 10 ML Syringe IV (04:58)
[2025-09-20 05:07] VITALS: BP 138/62; PULSE 63; RESP 16; TEMP 36.6; O2SAT 95
[2025-09-20 06:25] LABS: Hematocrit 35.3 % (40-54); Hemoglobin 12.0 g/dL (13.0-16.5); Immature Granulocytes Count 0.090 X10^3/uL (0.0-0.0); Mean Corp Hgb Conc 34.0 g/dL (32-36); Mean Corpuscular Volume 82.7 fL (80-94); Mean Platelet Vol. 9.4 fl (6.2-12.0); NRBC Flagged by Analyzer 0 % (0-5); Platelet Count 220 K/mm3 (150-450); RBC Distribution Width CV 13.1 % (11.6-14.6); RBC Distribution Width SD 39.5 fl (35.1-43.9); Red Blood Count 4.27 M/mm3 (4.6-6.2); White Blood Count 16.7 K/mm3 (4.4-11.0)
[2025-09-20 06:57] LABS: Anion Gap 9 (5-15); BUN 26 mg/dL (4-19); BUN/Creat Ratio 31.6 RATIO (10-20); Calcium,Total 8.2 mg/dL (7.6-11.0); Carbon Dioxide 23.6 mmol/L (21.0-32.0); Chloride 105 mmol/L (98-108); Estimated Creatinine Clearance 66.84 ml/min (50-250); Glucose 148 mg/dL (70-99); Potassium 4.5 mmol/L (3.3-5.1)
[2025-09-20] MEDS: FLU VACCINE HIGH DOSE 25-26(65YR UP) 180 MCG/0.5 ML SYRINGE IM (07:43)
[2025-09-20] MEDS: Ensure Surgery 237 ML LIQUID PO ×2 (07:43→11:59)
[2025-09-20] MEDS: BRIMONIDINE 0.2% 5ML BOTTLE 1 DRP OPHTHALMIC (07:45)
[2025-09-20] MEDS: Senna/Docusate Sodium 1 Tablet 2 TABLET PO (07:46)
--- NOTE | 2025-09-20 07:49 | PCM.PN.ORT ---
Subjective Subjective Matt is a pleasant 80-year-old gentleman postop day #1 L3-[address] Kramer. Patient is alert and awake, lying in bed with no distress. Patient states his pain has been adequately controlled with p.o. hydrocodone overnight. Patient states he has been up ambulating yesterday afternoon and overnight with use of the walker and reports steady gait. Denies any numbness tingling of the lower extremities. Patient's diet was advanced last night to regular diet and he feels he is tolerating well, passing gas. Patient states he is ready to DC home today. Objective Data Objective Data Vital Signs: Vital Signs Temp Pulse Resp BP Pulse Ox O2 Del Method O2 Flow Rate 97.8 F 63 16 138/62 H 95 Room Air 4 09/20/25 05:07 09/20/25 05:07 09/20/25 05:07 09/20/25 05:07 09/20/25 05:07 09/20/25 05:07 09/19/25 14:33 Oxygen Flow Rate (L/min) 4 Oxygen Delivery Method Room Air Weight: 150 lb Body Mass Index (BMI) 22.8 Intake & Output: Intake and Output for Last 24 Hours 09/18/25 09/19/25 09/20/25 23:59 23:59 23:59 Intake Total 1353 / 1353 110 / 110 Output Total 520 / 520 Balance 833 / 833 110 / 110 Lab / Micro Data Attestation: I reviewed the patient's lab results. 09/20/25 05:56 09/20/25 05:56 Labs: Laboratory Results - last 24 hr 09/20/25 05:56: WBC 16.7 H, RBC 4.27 L, Hgb 12.0 L, Hct 35.3 L, MCV 82.7, MCH 28.1, MCHC 34.0, RDW Std Deviation 39.5, RDW Coeff of Giles 13.1, Plt Count 220, MPV 9.4, Immature Gran % (Auto) 0.500, Neut % (Auto) 81.0 H, Lymph % (Auto) 13.7 L, [place] % (Auto) 4.7, Eos % (Auto) 0.0, Baso % (Auto) 0.1, Absolute Neuts (auto) 13.6 H, Absolute Lymphs (auto) 2.30, Nucleated RBC % 0, Sodium 137, Potassium 4.5, Chloride 105, Carbon Dioxide 23.6, Anion Gap 9, BUN 26 H, Creatinine 0.82, Estim Creat Clear Calc 66.84, Est GFR (MDRD) Non-Af 88, BUN/Creatinine Ratio 31.6 H, Glucose 148 H, Calcium 8.2 Micro: Microbiology 09/07/25 13:15 Swab (Method) Nasal Screen MRSA/MSSA - Final Physical Exam Narrative Patient moves all extremities well, able to sit easily upright in bed and transfer self. Moves all extremities with distal motor and sensation intact x 4. Positive sensation to all toes bilaterally. Easily palpable pedal pulses at +2. Calves are soft, nontender and easily compressible. Bilateral lower leg strength moderately strong and equal bilaterally. Const alert, oriented x3, no apparent distress and well nourished General Appearance: cooperative Resp normal respiratory effort Extremity normal capillary refill, no calf tenderness and no pedal edema Skin Wound Narrative: Postop gauze dressing to mid lumbar region is clean, dry and intact. There is no surrounding erythema, discoloration or swelling noted. Nontender to periwound region. Assessment & Plan Assessment/Plan (1) Status post laminectomy: PLAN: Continue to work with PT today. Anticipate DC home today, has nearby family to assist Weightbearing and ambulation as tolerated using cane and/or walker Pain control with acetaminophen, meloxicam, hydrocodone and methocarbamol as prescribed Regular diet as tolerated Reviewed warning signs to monitor site for any redness, drainage, warmth to site, fever or chills to seek evaluation Follow-up in Ortho clinic in approximately 2 weeks, sooner for changes or concerns This document has been transcribed using [employer] dictation software. There may be incorrect words, spelling, and punctuation. (2) Lumbar stenosis with neurogenic claudication:
[2025-09-20 08:23] VITALS: BP 114/57; PULSE 70; RESP 16; TEMP 36.5; O2SAT 97
--- NOTE | 2025-09-20 09:44 | DS.PCM_ITS ---
Discharge Summary Date of Admission: 09/19/25 Date of Discharge: 09/20/25 Summary: Matt is an 80-year-old gentleman postop day #1 L3-[address] Kramer Patient has been ambulatory overnight with use of walker, pain well-controlled with oral medications. Patient has resumed normal diet and tolerating well Weightbearing and ambulation as tolerated using cane and/or walker Pain control with acetaminophen, meloxicam, hydrocodone and methocarbamol as prescribed Regular diet as tolerated Reviewed warning signs to monitor site for any redness, drainage, warmth to site, fever or chills to seek evaluation Follow-up in Ortho clinic in approximately 2 weeks, sooner for changes or concerns Physical Exam Narrative Patient moves all extremities well, able to sit easily upright in bed and transf er self. Moves all extremities with distal motor and sensation intact x 4. Positive sensation to all toes bilaterally. Easily palpable pedal pulses at +2. Calves are soft, nontender and easily compressible. Bilateral lower leg strength moderately strong and equal bilaterally. Const alert, oriented x3, no apparent distress and well nourished General Appearance: cooperative Resp normal respiratory effort Extremity normal capillary refill, no calf tenderness and no pedal edema Skin Wound Narrative: Postop gauze dressing to mid lumbar region is clean, dry and intact. There is no surrounding erythema, discoloration or swelling noted. Nontender to periwound region. Meaningful Use Info Meaningful Use Meaningful Use Diagnoses (Choose all that apply): None applicable Ischemic Stroke Statin Dosing Therapy Reference: STATIN DOSE THERAPY REFERENCE: * Patients > 75 years receive moderate or high dose statin therapy. * Patients 75 years or YOUNGER should receive HIGH intensity statin dose unless contraindicated. You will be required to document reason for non-treatment if statin daily dose does not meet guidelines. HIGH DOSE STATIN THERAPY DAILY Atorvastatin > than or = to 40 mg Rosuvastatin > than or = to 20 mg Amlodipine + Atorvastatin > than or = to 2.5/40 mg Ezetimibe + Simvastatin 10/80 mg Simvastatin 80mg Discharge Plan Admission Admit Date/Time: 09/19/25 13:31 Attending Provider: Thierry Kramer Primary Care Provider: Jasper Rojas Consulting Providers: Vignesh Haq; Zachery Ervin; Shanelle Gilman; Delta Spicer; Delta Branch; Wei Munroe; Tana Alexandra; Mo Cotto; Jolynn Waldrop; Alejandro Vera; Ivonne Castillo; Erwin Hernandez; Refugio Batista; Sandy Menon; Johan Ayala; Adriane De; Ko Pardo; Ton Carver Instructions Patient Instructions: Laminectomy Dc Additional Instructions / Restrictions: Keep Tegaderm and gauze clean and dry. If Tegaderm is intact, okay to shower. After 5 days remove Tegaderm and gauze and cover with a Band-Aid. Replace Band- Aid daily thereafter. No bending lifting or twisting. Follow-up in clinic in 2 weeks. Discharge Orders/Prescriptions Prescriptions: New hydrocodone-acetaminophen 5-325 mg Tablet 1 tab PO Q6H PRN (Reason: pain) 5 Days Qty: 20 0RF meloxicam 15 mg Tablet 15 mg PO DAILY Qty: 30 0RF Rx Instructions: take once a day methocarbamol 500 mg Tablet 750 mg PO TID PRN (Reason: pain/spasms) Qty: 30 0RF sennosides-docusate sodium [Stimulant Laxative Plus] 8.6-50 mg Tablet 2 tab PO BID PRN (Reason: constipation) Qty: 14 0RF acetaminophen 500 mg capsule 500 mg PO Q6H Qty: 30 0RF Continued risedronate 150 mg tablet 150 mg PO QMONTH brimonidine 0.2 % drops 1 drp ophthalmic (eye) BID Held aspirin 81 mg Tablet,Chewable 81 mg PO DAILY Hold Instructions: Resume on 09/21/25. Referrals / Follow Up: Jasper Rojas MD [Primary Care Provider, Family Practice] Disposition Disposition (needs filled in before D/C Order can be placed): Home, Self Care
--- NOTE | 2025-09-20 10:18 | CASEMGMT ---
CANELO MARTINEZ spoke with therapy who reports pt needs a FWW, no therapy needed. CANELO MARTINEZ into pt room, pt sitting up in chair in no distress. Provided pt with a verbal local in network list of DME companies, pt chose [employer]. Pt denies any other homegoing needs at this time. Sent referral for FWW to [facility] via [facility] at this time.
[2025-09-20 11:01] VITALS: BP 126/57; PULSE 65; RESP 16; TEMP 36.5; O2SAT 97
--- NOTE | 2025-09-20 12:07 | PHA.DC_ITS ---
Pharmacy [facility] has performed discharge medication counseling for this patient. The patient was counseled on the following discharge medications and changes in medications for homegoing review. - Acetaminophen 500 mg capsule, hydrocodone/acetaminophen 5/325 mg tablet, Meloxicam 15 mg tablet, Methocarbamol 500 mg tablet, senna/docusate 8.6/50 mg tablet The Reason for Use, instructions for use, and potential side effects were reviewed for all new medications. The patient's questions regarding all of their medications were answered. The patient was able to verbally demonstrate an understanding of their discharge medications. Medications at Discharge Home Medications aspirin 81 mg chewable tablet 81 mg PO DAILY 04/07/21 Held on 09/19/25. Instructions: Resume on 09/21/25. brimonidine 0.2 % eye drops 1 drp ophthalmic (eye) BID 07/10/25 risedronate 150 mg tablet 150 mg PO QMONTH 07/10/25 acetaminophen 500 mg capsule 500 mg PO Q6H #30 caps 09/19/25 hydrocodone-acetaminophen 5-325mg 5mg-325mg 1 tab PO Q6H PRN pain 5 days #20 tabs 09/19/25 meloxicam 15 mg tablet 15 mg PO DAILY #30 tabs 09/19/25 methocarbamol 500 mg tablet 750 mg (1.5 x 500 mg) PO TID PRN pain/spasms #30 tabs 09/19/25 sennosides 8.6 mg-docusate sodium 50 mg tablet (Stimulant Laxative Plus) 2 tab PO BID PRN constipation #14 tabs 09/19/25
--- NOTE | 2025-09-20 15:37 | PN.HOSP_ITS ---
Objective Data Objective Data Vital Signs: Vital Signs Temp Pulse Resp BP Pulse Ox O2 Del Method O2 Flow Rate 97.7 F L 65 16 126/57 H 97 Room Air 4 09/20/25 11:01 09/20/25 11:01 09/20/25 11:01 09/20/25 11:01 09/20/25 11:01 09/20/25 11:01 09/19/25 14:33 Oxygen Flow Rate (L/min) 4 Oxygen Delivery Method Room Air Weight: 150 lb Body Mass Index (BMI) 22.8 Intake & Output: Intake and Output for Last 24 Hours 09/18/25 09/19/25 09/20/25 23:59 23:59 23:59 Intake Total 1353 / 1353 410 / 410 Output Total 520 / 520 Balance 833 / 833 410 / 410 Lab / Micro Data 09/20/25 05:56 09/20/25 05:56 Labs: Laboratory Results - last 24 hr 09/20/25 05:56: WBC 16.7 H, RBC 4.27 L, Hgb 12.0 L, Hct 35.3 L, MCV 82.7, MCH 28.1, MCHC 34.0, RDW Std Deviation 39.5, RDW Coeff of Giles 13.1, Plt Count 220, MPV 9.4, Immature Gran % (Auto) 0.500, Neut % (Auto) 81.0 H, Lymph % (Auto) 13.7 L, [place] % (Auto) 4.7, Eos % (Auto) 0.0, Baso % (Auto) 0.1, Absolute Neuts (auto) 13.6 H, Absolute Lymphs (auto) 2.30, Nucleated RBC % 0, Sodium 137, Potassium 4.5, Chloride 105, Carbon Dioxide 23.6, Anion Gap 9, BUN 26 H, Creatinine 0.82, Estim Creat Clear Calc 66.84, Est GFR (MDRD) Non-Af 88, BUN/Creatinine Ratio 31.6 H, Glucose 148 H, Calcium 8.2 Micro: Microbiology 09/07/25 13:15 Swab (Method) Nasal Screen MRSA/MSSA - Final Physical Exam Narrative Seen and examined. Patient had a lumbar spinal surgery yesterday for lumbar spinal stenosis. He is feeling much better he walked with physical therapy. Expected mild lower spinal discomfort/pain. Ready to go home. Voiding urine spontaneously. Had BM yesterday. Physical exam General: Alert, Oriented x3, Cooperative. BMI 22.8 kg/m². HEENT: Atraumatic, PERRLA, EOMI, Normocephalic. Oral: No Gingival or Mucosal Lesions/ Ulcerations Neck: Supple, No JVD, Negative Carotid Bruits Chest wall/Lungs: Air entry equal in bilateral lung bases. No crepitation/rhonchi Cardiovascular: Regular rate and rhythm, Normal S1,S2, No M/G/R Abdomen: Bowel Sounds Present, Soft, Non Tender, Non-Distended : No dysuria. No renal angle tenderness. No suprapubic tenderness. Extremities: No edema, Capillary Refill Less than 3 Seconds Skin: No rashes, No breakdown Musculoskeletal: No Tenderness to Palpation of Joints or Extremities Spine: Surgical dressing is dry. No hematoma or bruise. Minimal to mild expected tenderness. Neurological: Cranial nerves II-XII grossly intact, DTR 2+/4. No acute focal neurological deficit. Psych/Mental Status: Normal Affect, Appropriate. 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 Christiano Apple - 09/20 pain is well-controlled. Surgical dressing is dry intact. No hematoma. Patient is being discharged. He does not have a history of his smoking or drinking alcohol. #DVT ppx: Agent and timing at discretion of primary Follow with PCP. Charges/Coding Visit Charges Inpatient E&M: 82226 Subs Hosp L2
== END 2025-09-20 12:37 | disposition home or self-care (01) ==
LOC: SDC 17:06 → MS3 17:06
PROVIDERS: Anesthesiology; Student in an Organized Health Care Education/Training Program; Admitting Provider Orthopaedic Surgery Orthopaedic Surgery of the Spine; PCP Family Medicine; Referring Provider Orthopaedic Surgery Orthopaedic Surgery of the Spine; Visit Provider Orthopaedic Surgery Orthopaedic Surgery of the Spine
DX: M48.062 Spinal stenosis, lumbar region with neurogenic claudication (principal); R26.2 Difficulty in walking, not elsewhere classified; M51.360 Other intervertebral disc degeneration, lumbar region with discogenic back pain only; Z79.82 Long term (current) use of aspirin; Z79.83 Long term (current) use of bisphosphonates; M81.0 Age-related osteoporosis without current pathological fracture; R20.0 Anesthesia of skin; Z91.81 History of falling; Z87.81 Personal history of (healed) traumatic fracture
CPT/HCPCS: 63047; 00630; 36415; 72100; 76000; 80048; 83036; 83735; 85025; 86850; 86900; 86901; 87081; 94668; 96365; 96366; 96375; 96376; 97161; 97166; 99221; A4216; G0378; J2405; J3475